=== PATIENT | male | born 1955 | race Hispanic/Latino ===

== ENCOUNTER 2018-05-03 14:45 | Inpatient (IN) | payer SELFPAY ==
[2018-05-03 17:25] LABS: Basophils # (Auto) 0.1 K/mm3 (0.0-0.1); Eosinophils # (Auto) 0.1 K/mm3 (0.0-0.4); Eosinophils % (Auto) 2.2 % (0.0-4.3); Hematocrit 40.2 % (35.5-45.6); Hemoglobin 13.4 gm/dl (11.8-15.2); Lymphocytes # (Auto) 1.4 K/mm3 (1.2-5.4); Lymphocytes % (Auto) 23.4 % (13.4-35.0); Mean Corpuscular HGB Conc 33 % (32-34); Mean Corpuscular Hemoglobin 31 pg (28-32); Mean Corpuscular Volume 92 fl (84-94); Monocytes # (Auto) 0.5 K/mm3 (0.0-0.8); Monocytes % (Auto) 7.8 % (0.0-7.3); Platelet Count 347 K/mm3 (140-440); Red Blood Count 4.35 M/mm3 (3.65-5.03); Red Cell Distribution Width 13.9 % (13.2-15.2)
[2018-05-03 17:28] LABS: Bilirubin,Urine NEG (Negative); Blood,Urine NEG (Negative); Color,Urine Yellow (Yellow); Mucus,Urine FEW /HPF; Protein,Urine <15 mg/dL mg/dL (Negative); RBC,Urine < 1.0 /HPF (0.0-6.0)
[2018-05-03 18:00] LABS: Calcium 9.7 mg/dL (8.4-10.2)
[2018-05-03] MEDS ORDERED: NACL 0.9% 1000 ML 1,000 ML IV ONE (20:49)
--- NOTE | 2018-05-03 20:53 | Emergency Department Report ---
HPI - General Chief Complaint: Hyperglycemia Time Seen by Provider: 05/03/18 20:39 - HPI HPI: 62-year-old male presents to the emergency department with complaint of a few days of dizziness. 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 He also says that he gets very fatigued easily with little exertion. He denies any headache, chest pain, shortness of breath, slurred speech, vision change, fever. He has a past medical history of hypertension and [id number] diabetes but has been noncompliant with medications for the past few years. The patient admits that he has not been conscientious about what he has been eating and has been having fruit juice and popsicles. He has had his blood sugar checked multiple times recently and often has been above 300. He went to an urgent care about one week ago and was started on metformin 1000 mg twice daily and lisinopril 20 mg daily. He does not have a primary care physician. He denies any tobacco or illicit drug use. No recent travel or sick contacts at home. ED Past Medical Hx - Past Medical History Previous Medical History?: Yes Hx Hypertension: Yes Hx Diabetes: Yes - Surgical History Past Surgical History?: No - Social History Smoking Status: Never Smoker Substance Use Type: None - Medications Home Medications: Home Medications Medication Instructions Recorded Confirmed Last Taken Type Lisinopril 20 mg PO DAILY 05/03/18 05/03/18 05/03/18 History metFORMIN [Glucophage] 500 mg PO BID 05/03/18 05/03/18 05/03/18 History ED Review of Systems ROS: Stated complaint: HIGH BLOOD SUGAR/DIZZINESS Other details as noted in HPI Comment: All other systems reviewed and negative Constitutional: other (fatigue). denies: chills, fever Eyes: denies: eye pain, eye discharge, vision change ENT: denies: ear pain, throat pain Respiratory: denies: cough, shortness of breath, wheezing Cardiovascular: denies: chest pain, palpitations Gastrointestinal: denies: abdominal pain, nausea, diarrhea Genitourinary: denies: urgency, dysuria Musculoskeletal: denies: back pain, joint swelling, arthralgia Skin: denies: rash, lesions Neurological: other (dizziness). denies: headache Physical Exam - Physical Exam Vital Signs: Vital Signs 05/03/18 15:01 Temperature 97.8 F Pulse Rate 82 Respiratory 16 Rate Blood Pressure 102/50 O2 Sat by Pulse 100 Oximetry Physical Exam: GENERAL: The patient is well-developed well-nourished. HENT: Normocephalic. Atraumatic. Patient has moist mucous membranes. EYES: Extraocular motions are intact. Pupils equal reactive to light bilaterally. There is some fatigable horizontal nystagmus. NECK: Supple. Trachea is midline. CHEST/LUNGS: Clear to auscultation. There is no respiratory distress noted. HEART/CARDIOVASCULAR: Regular. There is no tachycardia. There is no murmur. ABDOMEN: Abdomen is soft, nontender. Patient has normal bowel sounds. There is no abdominal distention. SKIN: Skin is warm and dry. NEURO: The patient is awake, alert, and oriented. The patient is cooperative. The patient has no focal neurologic deficits. The patient has normal speech. Cranial nerves II through XII grossly intact. No pronator drift. No dysmetria. MUSCULOSKELETAL: There is no tenderness or deformity. There is no limitation range of motion. There is no evidence of acute injury. ED Course Vital Signs 05/03/18 15:01 Temperature 97.8 F Pulse Rate 82 Respiratory 16 Rate Blood Pressure 102/50 O2 Sat by Pulse 100 Oximetry - Consultations Consultation #1: 05/04/18 03:49 I spoke with the woods rider geographic information scientist, Dr. Dumont, who recommends starting heparin on the patient and will see him as a consult in the morning. ED Medical Decision Making - Lab Data Result diagrams: 05/03/18 16:31 05/03/18 16:31 - EKG Data -: EKG Interpreted by Me EKG shows normal: sinus rhythm, axis, intervals, QRS complexes, ST-T waves Rate: normal - EKG Data When compared to previous EKG there are: previous EKG unavailable Interpretation: normal EKG - Radiology Data Radiology results: image reviewed interpreted by me: Chest x-ray does not show any acute process. There are no pleural effusions, obvious pneumonia and there is no pneumothorax. - Medical Decision Making Patient presents with complaints of some exertional fatigue, dizziness and lightheadedness. He also complains of some uncontrolled diabetes despite restarting on metformin about 1 week ago. He does have hyperglycemia but does not appear to be in diabetic ketoacidosis. EKG is normal without ST elevation WI, ischemia or dysrhythmia. However the patient's first troponin came back elevated and has continued to trend upwards thus far. Cardiology was contacted and the patient has been started on heparin drip. He will be admitted to the hospital for further evaluation and treatment and has been accepted for admission by the hospitalist, Dr. Bartholomew. - Differential Diagnosis WI, dysrhythmia, DKA, electrolyte abnormalities Critical Care Time: No Critical care attestation.: If time is entered above; I have spent that time in minutes in the direct care of this critically ill patient, excluding procedure time. ED Disposition Clinical Impression: NSTEMI (non-ST elevated myocardial infarction), Renal insufficiency, Dizziness Disposition: OP ADMIT IP TO THIS HOSP Is pt being admited?: Yes Condition: Fair Time of Disposition: 03:52
[2018-05-03] MEDS ORDERED: BABY ASPIRIN PO ONE (22:17)
[2018-05-03 22:23] LABS: Chol/HDL Ratio 6.37 %
[2018-05-03] MEDS ORDERED: HEPARIN 10,000 UNITS/10 ML IV ONE (22:24)
[2018-05-03] MEDS ORDERED: HEPARIN/ 0.45% NACL-25,000 UNIT/500 ML 25,000 UNIT/500 ML BAG IV SCH (23:00)
[2018-05-03 23:11] LABS: INR 1.01 (0.87-1.13)
--- NOTE | 2018-05-03 23:57 | History and Physical Report ---
History of Present Illness Date of examination: 05/03/18 History of present illness: 62-year-old male with a history of hypertension, diabetes stopped taking his medication of the last 2 years and restarted 1 week ago. He comes to the emergency room with complaints of chest pain that started 1 week ago. Pain was across his chest, bilateral shoulder and arms, neck and jaw which she described as a vice around these places, he states the pain was constant and became intermittent. He took some Tums for the patient with some relief. He denies shortness of breath, no nausea vomiting, diaphoresis or palpitation. Also complaining of generalized weakness Review of systems Constitutional: no weight loss, chills, fever Ears, eyes, nose, mouth and throat: no nasal congestion, no nasal discharge, no sinus pressure, no vision change, no red eye. Neck: No neck pain or rigidity. Cardiovascular: + chest pain, palpitations Respiratory: no cough, +shortness of breath Gastrointestinal: no abdominal pain hematochezia Genitourinary : no frequency , no hematuria Musculoskeletal: no joint swelling or muscle ache Integumentary: no rash, no pruritis Neurological: no parathesias, no numbness, no focal weakness Endocrine: no cold or heat intolerance, no polyuria or polydipsia Hematologic/Lymphatic: no easy bruising, no easy bleeding, no gland swelling Allergic/Immunologic: no urticaria, no angioedema. PAST MEDICAL HISTORY: Hypertension, diabetes PAST SURGICAL HISTORY: None SOCIAL HISTORY: No alcohol, no drugs, tobacco FAMILY HISTORY: Hypertension Medications and Allergies Allergies Allergy/AdvReac Type Severity Reaction Status Date / Time No Known Allergies Allergy Verified 05/03/18 22:37 Home Medications Medication Instructions Recorded Confirmed Last Taken Type Lisinopril 20 mg PO DAILY 05/03/18 05/03/18 05/03/18 History metFORMIN [Glucophage] 500 mg PO BID 05/03/18 05/03/18 05/03/18 History Active Meds: Active Medications Heparin Sodium/Sodium Chloride (Heparin/ 0.45% Nacl-25,000 Unit/500 Ml) 25,000 unit in 500 mls @ 20 mls/hr IV TITRATE RICARDO; Protocol Last Admin: 05/03/18 23:02 Dose: 1,360.75 units/hr, 27.215 mls/hr Exam - Physical Exam Narrative exam: Gen. appearance: Patient lying in bed, no apparent distress HEENT: Normocephalic, atraumatic, pupils equally round and reactive to light, extraocular movement intact, and no sclericterus,. No JVD or thyromegaly or nodule,neck supple, no carotid bruit ,mucous membranes moist, no exudate or erythema Heart: S1, S2, regular rate and rhythm Lungs: Clear bilaterally, breathing comfortable Abdomen: Positive bowel sounds, non-tender, nondistended, no organomegaly Extremity:no edema cyanosis, clubbing Skin: no rash, dry, warm Neuro: Oriented 3, cranial nerves II-12 intact, speech is fluent, motor and sensory intact - Constitutional Vitals: Temp Pulse Resp BP Pulse Ox 97.8 F 82 18 106/64 100 05/03/18 15:01 05/03/18 15:01 05/03/18 22:07 05/03/18 23:00 05/03/18 23:00 Results - Labs CBC & Chem 7: 05/03/18 16:31 05/03/18 16:31 Labs: Abnormal lab results 05/03/18 05/03/18 05/03/18 Range/Units 15:00 16:31 16:31 [place] % (Auto) 7.8 H (0.0-7.3) % VBG pH (7.320-7.420) Sodium 135 L (137-145) mmol/L Carbon Dioxide 21 L (22-30) mmol/L BUN 34 H (9-20) mg/dL Glucose 237 H (75-100) mg/dL POC Glucose 222 H (70-105) Troponin T (0.00-0.029) ng/mL Cholesterol (50-199) mg/dL LDL Cholesterol Direct (50-130) mg/dL 05/03/18 05/03/18 Range/Units 16:31 21:04 [place] % (Auto) (0.0-7.3) % VBG pH 7.261 L (7.320-7.420) Sodium (137-145) mmol/L Carbon Dioxide (22-30) mmol/L BUN (9-20) mg/dL Glucose (75-100) mg/dL POC Glucose (70-105) Troponin T 0.297 H* (0.00-0.029) ng/mL Cholesterol 274 H (50-199) mg/dL LDL Cholesterol Direct 212 H (50-130) mg/dL Assessment and Plan Assessment NSTMI Relative hypotension Diabetes type 2 Plan Admit to medicine Check cardiac enzymes, consult cardiology Continue heparin drip, start aspirin Club", JAZZY inhibitor, blood pressure will not tolerate continue appropriate outpatient medication, start DVT prophylaxis
[2018-05-04] MEDS ORDERED: PERCOCET 5/325 PO PRN (03:39)
[2018-05-04] MEDS ORDERED: ZOFRAN IV PRN (03:39)
[2018-05-04] MEDS ORDERED: SODIUM CHLORIDE FLUSH SYRINGE 10 ML IV PRN (03:39)
[2018-05-04] MEDS ORDERED: TYLENOL PO PRN (03:39)
--- NOTE | 2018-05-04 03:43 | XRay Report ---
FINAL REPORT PROCEDURE: XR CHEST 1V AP TECHNIQUE: Chest radiograph anteroposterior view. CPT 60826 HISTORY: NSTEMI COMPARISON: No prior studies are available for comparison. FINDINGS: Heart: Normal. Mediastinum/Vessels: Normal. Lungs/Pleural space: Normal. Bony thorax: No acute osseous abnormality. Life support devices: None. IMPRESSION: No acute cardiopulmonary abnormality.
[2018-05-04 05:58] LABS: Basophils # (Auto) 0.1 K/mm3 (0.0-0.1); Basophils % (Auto) 1.2 % (0.0-1.8); Eosinophils # (Auto) 0.2 K/mm3 (0.0-0.4); Eosinophils % (Auto) 2.6 % (0.0-4.3); Hematocrit 34.8 % (35.5-45.6); Hemoglobin 12.2 gm/dl (11.8-15.2); Lymphocytes # (Auto) 2.2 K/mm3 (1.2-5.4); Lymphocytes % (Auto) 31.9 % (13.4-35.0); Mean Corpuscular HGB Conc 35 % (32-34); Mean Corpuscular Hemoglobin 33 pg (28-32); Mean Corpuscular Volume 93 fl (84-94); Monocytes # (Auto) 0.5 K/mm3 (0.0-0.8); Monocytes % (Auto) 7.4 % (0.0-7.3); Platelet Count 286 K/mm3 (140-440); Red Blood Count 3.75 M/mm3 (3.65-5.03); Red Cell Distribution Width 14.2 % (13.2-15.2)
[2018-05-04 06:14] LABS: BUN/Creatinine Ratio 25; Blood Urea Nitrogen 25 mg/dL (9-20); Calcium 8.7 mg/dL (8.4-10.2); Hemolysis Index 9
[2018-05-04] MEDS ORDERED: PLAVIX PO ONE (09:31)
[2018-05-04] MEDS ORDERED: ASPIRIN PO SCH (10:00)
[2018-05-04] MEDS ORDERED: SODIUM CHLORIDE FLUSH SYRINGE 10 ML IV SCH (10:00)
[2018-05-04] MEDS ORDERED: ASPIRIN ONE (10:21)
[2018-05-04] MEDS ORDERED: ASPIRIN PO ONE (10:22)
[2018-05-04] MEDS ORDERED: HEPARIN/NS 5000 UNIT/500ML(CATH LAB) 1,000 ML IR ONE (10:34)
[2018-05-04] MEDS ORDERED: XYLOCAINE 2% INFILTRATI ONE (10:35)
[2018-05-04] MEDS ORDERED: CALAN ONE (10:35)
[2018-05-04] MEDS ORDERED: HEPARIN 10,000 UNITS/10 ML ONE (10:35)
[2018-05-04] MEDS ORDERED: VERSED ONE (10:35)
[2018-05-04] MEDS ORDERED: SUBLIMAZE ONE (10:35)
[2018-05-04] MEDS ORDERED: NITROGLYCERIN SYRINGE 3 ML ONE (10:35)
[2018-05-04] MEDS ORDERED: NACL 0.9% 500 ML 500 ML ONE (10:56)
[2018-05-04] MEDS ORDERED: PLAVIX ONE (11:13)
[2018-05-04] MEDS ORDERED: ALUM-MAG HYDROX-SIMETH 200-200-20MG/5ML ONE (11:16)
--- NOTE | 2018-05-04 11:30 | Event Note ---
Date: 05/04/18 lhc via right radial, lt main patent, lad mid 50%, diagonal 1 patent, lcx patent om1 small less than 2.0 mm mid 99% lesion, om2 small patent, rca patent and normal lv function, discuss with pt and family and medical management of nstemi, asa 81, plavix 75,statin, lopressor and imdur and dm control, possible discharge in am.
[2018-05-04] MEDS ORDERED: NACL 0.9% 1000 ML 1,000 ML IV SCH (12:00)
--- NOTE | 2018-05-04 12:22 | Consultation ---
History of Present Illness Consult date: 05/04/18 Requesting physician: TAMMIE SOLIS Consult reason: chest pain History of present illness: The patient claims that about 10 days ago, he ate some country ham prepared by his . Shortly thereafter, he developed bilateral upper extremity and substernal chest pain radiating to his jaw. He describes his chest pain as the sensation of someone sitting on his chest. He claims that he went to the fire department where he was noted to have elevated BP. He reports that they thought his symptoms were probably related to acid reflux and advised that he use antacids. Eventually, his symptoms resolved later that day. He did well until 5 days ago when he started noticing intermittent dizziness when he bends forward. Two days ago, due to significantly elevated blood glucose, he visited an urgent care center where he received metformin prescription. Due to persistence of dizziness, he decided to come to the emergency department this time. His troponin level is elevated consistent with acute non-ST segment elevation myocardial infarction. After informing the patient that he has to be hospitalized and undergo coronary angiography, he threatened to leave the hospital AMA and that he would not want to be admitted over the weekend. Later on, he changed his mind and was taken to the clinical laboratory science professor. Coronary angiography revealed a 50% mid LAD stenosis and 99% stenosis of a small, <2 mm OM1. RCA was patent. Past History Past Medical History: diabetes, hypertension, other (colitis) Past Surgical History: No surgical history Social history: , smoking Family history: denies: CAD Medications and Allergies Allergies Allergy/AdvReac Type Severity Reaction Status Date / Time No Known Allergies Allergy Verified 05/03/18 22:37 Home Medications Medication Instructions Recorded Confirmed Last Taken Type Lisinopril 20 mg PO DAILY 05/03/18 05/03/18 05/03/18 History metFORMIN [Glucophage] 500 mg PO BID 05/03/18 05/03/18 05/03/18 History Active Meds: Active Medications Acetaminophen (Tylenol) 650 mg PO Q4H PRN PRN Reason: Pain MILD(1-3)/Fever >100.5/CROCKETT Aspirin (Aspirin) 325 mg PO QDAY COUNTS INCLUDE 234 BEDS AT THE [facility] Last Admin: 05/04/18 10:25 Dose: 325 mg Aspirin (Baby Aspirin) 81 mg PO QDAY COUNTS INCLUDE 234 BEDS AT THE [facility] Clopidogrel Bisulfate (Plavix) 75 mg PO QDAY COUNTS INCLUDE 234 BEDS AT THE [facility] Heparin Sodium/Sodium Chloride (Heparin/ 0.45% Nacl-25,000 Unit/500 Ml) 25,000 unit in 500 mls @ 20 mls/hr IV TITRATE RICARDO; Protocol Last Titration: 05/04/18 06:48 Dose: 1,310.75 units/hr, 26.215 mls/hr Sodium Chloride (Nacl 0.9% 1000 Ml) 1,000 mls @ 75 mls/hr IV DIRECT RICARDO Stop: 05/04/18 21:59 Isosorbide Mononitrate (Imdur) 30 mg PO QDAY RICARDO Metoprolol Tartrate (Lopressor) 25 mg PO BID RICARDO Ondansetron HCl (Zofran) 4 mg IV Q8H PRN PRN Reason: Nausea And Vomiting Oxycodone/Acetaminophen (Percocet 5/325) 1 tab PO Q6H PRN PRN Reason: Pain, Moderate (4-6) Pravastatin Sodium (Pravachol) 40 mg PO QHS RICARDO Sodium Chloride (Sodium Chloride Flush Syringe 10 Ml) 10 ml IV BID RICARDO Sodium Chloride (Sodium Chloride Flush Syringe 10 Ml) 10 ml IV PRN PRN PRN Reason: LINE FLUSH Review of Systems Constitutional: no fever, no chills Ears, nose, mouth and throat: no ear pain, no ear discharge, no sore throat Cardiovascular: chest pain, lightheadedness, no orthopnea, no palpitations, no shortness of breath Respiratory: no cough, no hemoptysis, no shortness of breath Gastrointestinal: no abdominal pain, no nausea, no vomiting, no diarrhea, no constipation Genitourinary Male: no dysuria, no urinary frequency Rectal: no pain, no bleeding Musculoskeletal: no neck stiffness, no neck pain, no myalgias Integumentary: no rash, no pruritis Neurological: no weakness, no parathesias, no headaches Endocrine: no cold intolerance, no heat intolerance Hematologic/Lymphatic: no easy bruising, no easy bleeding Allergic/Immunologic: no urticaria, no wheezing Physical Examination Vital Signs Temp Pulse Resp BP Pulse Ox 97.8 F 82 16 102/50 100 05/03/18 15:01 05/03/18 15:01 05/03/18 15:01 05/03/18 15:01 05/03/18 15:01 General appearance: no acute distress HEENT: Positive: EOMI, Normocephaly, Mucus Membranes Moist Neck: Positive: neck supple, trachea midline Cardiac: Positive: Reg Rate and Rhythm, S1/S2 Lungs: Positive: clear to auscultation Neuro: Positive: Grossly Intact Abdomen: Positive: Soft, Active Bowel Sounds. Negative: Tender Skin: Positive: Clear. Negative: Rash Musculoskeletal: Normal Range of Motion Extremities: Present: normal. Absent: edema Results 05/04/18 05:41 05/04/18 05:41 Coagulation 05/03/18 Range/Units 22:41 PT 13.8 (12.2-14.9) Sec. INR 1.01 (0.87-1.13) APTT 26.0 (24.2-36.6) Sec. Lipids 05/03/18 Range/Units 21:04 Triglycerides 132 (2-149) mg/dL Cholesterol 274 H (50-199) mg/dL HDL Cholesterol 43 (40-59) mg/dL Cholesterol/HDL Ratio 6.37 % CBC 05/03/18 05/04/18 Range/Units 16:31 05:41 WBC 6.1 6.8 (4.5-11.0) K/mm3 RBC 4.35 3.75 (3.65-5.03) M/mm3 Hgb 13.4 12.2 (11.8-15.2) gm/dl Hct 40.2 34.8 L (35.5-45.6) % Plt Count 347 286 (140-440) K/mm3 Lymph # 1.4 2.2 (1.2-5.4) K/mm3 [place] # 0.5 0.5 (0.0-0.8) K/mm3 Eos # 0.1 0.2 (0.0-0.4) K/mm3 Baso # 0.1 0.1 (0.0-0.1) K/mm3 Comprehensive Metabolic Panel 05/03/18 05/04/18 Range/Units 16:31 05:41 Sodium 135 L 137 (137-145) mmol/L Potassium 4.8 4.2 (3.6-5.0) mmol/L Chloride 100.6 104.2 (98-107) mmol/L Carbon Dioxide 21 L 19 L (22-30) mmol/L BUN 34 H 25 H (9-20) mg/dL Creatinine 1.4 1.0 (0.8-1.5) mg/dL Glucose 237 H 266 H (75-100) mg/dL Calcium 9.7 8.7 (8.4-10.2) mg/dL - Imaging and Cardiology EKG: image reviewed EKG interpretations - Telemetry EKG Rhythm: Sinus Rhythm - EKG Sinus rhythms and dysrhythmias: sinus rhythm AV and intraventricular conduction: right bundle branch block Assessment and Plan Initiate anti-ischemic regimen including ASA, Plavix, Statin, Beta mindy and oral nitrates. Add ACEI if BP permits. Medical mgt of his CAD - vessel too small for stenting. - Patient Problems (1) NSTEMI (non-ST elevated myocardial infarction) Current Visit: Yes Status: Acute (2) CAD (coronary artery disease) Current Visit: Yes Status: Acute Qualifiers: Coronary Disease-Associated Artery/Lesion type: ute artery (3) Dizziness Current Visit: Yes Status: Acute (4) Hypertension Current Visit: Yes Status: Acute (5) Diabetes mellitus Current Visit: Yes Status: Chronic Qualifiers: Diabetes mellitus type: type 2
--- NOTE | 2018-05-04 12:27 | Progress Note ---
Assessment and Plan Assessment and plan: Patient is a 62-year-old man with a history of hypertension and type 2 DM who presented to the ED with malaise and dizziness. He mentioned that he experience chest pains about 1 week ago which resolved. Troponin was elevated and he was diagnosis with NSTEMI and scheduled for cardiac cath on Monday due to the long weekend. He refused to stay and was threatening to leave AMA; so the Product Safety Professional performed the Cardiac cath today which revealed a 50% mid LAD stenosis and 99% stenosis of a small, <2 mm OM1. RCA was patent. NSTEMI: treat medical, use Lovastatin 40mg at discharge for lower cost (d/w Dr. Velasco) Relative hypotension Diabetes type 2 Noncompliance: savings counselor on compliance Dizziness: treat with ivf Medical management and anticipate d/c tomorrow History Interval history: Patient was seen and examined. Follow-up on current diagnosis of dizziness. Overnight uneventful. Patient denies any chest pain, shortness breath, nausea/ vomiting or severe headaches. Imaging, nursing note, chart, labs and old chart reviewed. Discussed with patient. Hospitalist Physical - Physical exam Narrative exam: GEN: WDWN, NAD, Awake, Alert, Orientated x 3 HEENT: NCAT, EOMI, PERRL, OP Clear NECK: supple, no adenopathy, no thyromegaly, no JVD CVS/HEART: RRR, normal S1S2, pulses present bilaterally CHEST/LUNGS: CTA B, Symmetrical chest expansion, good air entry bilaterally GI/Abdomen: soft, NTND, good bowel sounds, no guarding or rebound /Bladder: no suprapubic tenderness, no CVA or paraspinal tenderness EXT/Skin: no c/c/e, no obvious rash MSK: FROM x 4 Neuro: CN 2-12 grossly intact, no new focal deficits Psych: calm but poor judgement in regards to his DM - Constitutional Vitals: Temp Pulse Resp BP Pulse Ox 97.4 F L 59 L 12 97/56 91 05/04/18 11:24 05/04/18 11:55 05/04/18 11:55 05/04/18 11:55 05/04/18 11:55 Results - Labs CBC & Chem 7: 05/04/18 05:41 05/04/18 05:41 Labs: Laboratory Last Values WBC 6.8 K/mm3 (4.5-11.0) 05/04/18 05:41 RBC 3.75 M/mm3 (3.65-5.03) 05/04/18 05:41 Hgb 12.2 gm/dl (11.8-15.2) 05/04/18 05:41 Hct 34.8 % (35.5-45.6) L 05/04/18 05:41 MCV 93 fl (84-94) 05/04/18 05:41 MCH 33 pg (28-32) H 05/04/18 05:41 MCHC 35 % (32-34) H 05/04/18 05:41 RDW 14.2 % (13.2-15.2) 05/04/18 05:41 Plt Count 286 K/mm3 (140-440) 05/04/18 05:41 Lymph % (Auto) 31.9 % (13.4-35.0) 05/04/18 05:41 [place] % (Auto) 7.4 % (0.0-7.3) H 05/04/18 05:41 Eos % (Auto) 2.6 % (0.0-4.3) 05/04/18 05:41 Baso % (Auto) 1.2 % (0.0-1.8) 05/04/18 05:41 Lymph # 2.2 K/mm3 (1.2-5.4) 05/04/18 05:41 [place] # 0.5 K/mm3 (0.0-0.8) 05/04/18 05:41 Eos # 0.2 K/mm3 (0.0-0.4) 05/04/18 05:41 Baso # 0.1 K/mm3 (0.0-0.1) 05/04/18 05:41 Seg Neutrophils % 56.9 % (40.0-70.0) 05/04/18 05:41 Seg Neutrophils # 3.9 K/mm3 (1.8-7.7) 05/04/18 05:41 PT 13.8 Sec. (12.2-14.9) 05/03/18 22:41 INR 1.01 (0.87-1.13) 05/03/18 22:41 APTT 26.0 Sec. (24.2-36.6) 05/03/18 22:41 Heparin Anti-Xa Level 0.76 U.I./ml (0.3-0.7) H 05/04/18 05:41 VBG pH 7.261 (7.320-7.420) L 05/03/18 16:31 Sodium 137 mmol/L (137-145) 05/04/18 05:41 Potassium 4.2 mmol/L (3.6-5.0) 05/04/18 05:41 Chloride 104.2 mmol/L (98-107) 05/04/18 05:41 Carbon Dioxide 19 mmol/L (22-30) L 05/04/18 05:41 Anion Gap 18 mmol/L 05/04/18 05:41 BUN 25 mg/dL (9-20) H 05/04/18 05:41 Creatinine 1.0 mg/dL (0.8-1.5) 05/04/18 05:41 Estimated GFR > 60 ml/min 05/04/18 05:41 BUN/Creatinine Ratio 25 % 05/04/18 05:41 Glucose 266 mg/dL (75-100) H 05/04/18 05:41 POC Glucose 222 (70-105) H 05/03/18 15:00 Lactic Acid 1.00 mmol/L (0.7-2.0) 05/03/18 21:04 Calcium 8.7 mg/dL (8.4-10.2) 05/04/18 05:41 Troponin T 0.358 ng/mL (0.00-0.029) H* D 05/04/18 00:02 Triglycerides 132 mg/dL (2-149) 05/03/18 21:04 Cholesterol 274 mg/dL (50-199) H 05/03/18 21:04 LDL Cholesterol Direct 212 mg/dL (50-130) H 05/03/18 21:04 HDL Cholesterol 43 mg/dL (40-59) 05/03/18 21:04 Cholesterol/HDL Ratio 6.37 % 05/03/18 21:04 TSH 3.450 mlU/mL (0.270-4.200) 05/03/18 21:04 Urine Color Yellow (Yellow) 05/03/18 16:08 Urine Turbidity Clear (Clear) 05/03/18 16:08 Urine pH 5.0 (5.0-7.0) 05/03/18 16:08 Ur Specific [place] 1.027 (1.003-1.030) 05/03/18 16:08 Urine Protein <15 mg/dl mg/dL (Negative) 05/03/18 16:08 Urine Glucose (UA) 50 mg/dL (Negative) 05/03/18 16:08 Urine Ketones Tr mg/dL (Negative) 05/03/18 16:08 Urine Blood Neg (Negative) 05/03/18 16:08 Urine Nitrite Neg (Negative) 05/03/18 16:08 Urine Bilirubin Neg (Negative) 05/03/18 16:08 Urine Urobilinogen 2.0 mg/dL (<2.0) 05/03/18 16:08 Ur Leukocyte Esterase Neg (Negative) 05/03/18 16:08 Urine WBC (Auto) 2.0 /HPF (0.0-6.0) 05/03/18 16:08 Urine RBC (Auto) < 1.0 /HPF (0.0-6.0) 05/03/18 16:08 Urine Mucus Few /HPF 05/03/18 16:08
--- NOTE | 2018-05-04 13:17 | Cardiac Catherization Report ---
LEFT HEART CATHETERIZATION CLINICAL INFORMATION: This is a 62-year-old gentleman, noncompliant with medication for diabetes, nonsmoker, presents with chest pain a few days ago with abnormal troponin suggestive of non-ST elevation VA. The patient was consented, explained the risk and benefits, brought to the landscaping and groundskeeping laborer. had breakfast, did not get sedation. The procedure was performed via the right radial artery, sterile technique, local anesthesia, 6-Afghan radial sheath. Left system engaged with 3.5 guiding catheter with a diagnostic catheter with the following findings: Left main is a medium caliber vessel, it is patent, bifurcates into [id number] caliber LAD, has a proximal mid after first diagonal, 50% lesion. Diagonal 1 is a [id number] caliber vessel that is patent and then circumflex and AV groove is a small caliber vessel that is patent, goes into a very small OM1 less than 2 mm, has a 99% NERISSA 2 flow in that vessel. The patient is currently chest pain free and OM2 is a small caliber vessel, 2.5 mm vessel that is patent. RCA is a large dominant vessel that is patent with mild irregularities, bifurcates a medium caliber PDA and PLV that are patent. LV gram done in GUYANESE and BUCKNER view shows normal LV function, LVEDP of 24 mmHg, LV is 112/24, aortic is 112/70. No gradient across the aortic valve on pullback. 5-Afghan catheters were taken over guidewire, 6-Afghan radial sheath was discontinued. Radial dressing applied. No hematoma, no bleeding. SUMMARY: The patient has small vessel disease. OM1 has 99% with NERISSA 3 flow. He is currently chest pain free. In view of the size of the vessel, we will treat medically. The patient had in view of small vessel less 2.0 mm will treat medically with aspirin, Plavix, statin and beta blockers and nitrates. The patient discussed about the nonobstructive disease in LAD, has aggressive statin medications, compliant with diabetes control and RCA patent, diagonal patent, left main patent, and circumflex and AV groove patent. Discussed in detail with the family. JOB# [id number] EVIN/MELANIE VICTORIA
[2018-05-04] MEDS: LOPRESSOR PO SCH (22:00)
[2018-05-04] MEDS ORDERED: PRAVACHOL PO SCH (22:00)
[2018-05-05 05:23] LABS: Hematocrit 35.4 % (35.5-45.6)
[2018-05-05 07:49] LABS: BUN/Creatinine Ratio 17; Blood Urea Nitrogen 15 mg/dL (9-20); Calcium 8.9 mg/dL (8.4-10.2); Hemolysis Index 14
[2018-05-05 08:27] VITALS: BP 105/63
[2018-05-05] MEDS ORDERED: BABY ASPIRIN PO SCH (10:00)
[2018-05-05] MEDS ORDERED: IMDUR PO SCH (10:00)
[2018-05-05] MEDS ORDERED: PLAVIX PO SCH (10:00)
--- NOTE | 2018-05-05 10:49 | Discharge Summary ---
Providers - Providers Date of Admission: 05/03/18 23:57 Date of discharge: 05/05/18 Attending physician: BENNETT ACEVEDO 05/03/18 23:21 Consult to Cardiology [CONS] Routine Consulting Provider: MEERA HOLDEN Reason For Exam: NSTEMI 05/04/18 03:39 Consult to Physician [CONS] Routine Comment: Consulting Provider: MEERA HOLDEN Physician Instructions: Reason For Exam: nstmi 05/04/18 11:25 Consult to Cardiac Rehabilitation [CONS] Routine Reason For Exam: Cardiac Rehab Evaluation 05/04/18 11:27 Consult to Case Management [CONS] Urgent Services Needed at Discharge: Other Notified:: n Additional Physician Instructions: self pay to help with medcaid application 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 He mentioned that he experience chest pains about 1 week ago which resolved. Troponin was elevated and he was diagnosis with NSTEMI and scheduled for cardiac cath on Monday due to the long weekend. He refused to stay and was threatening to leave AMA; so the Safety Consultant performed the Cardiac cath today which revealed a 50% mid LAD stenosis and 99% stenosis of a small, <2 mm OM1. RCA was patent. NSTEMI: treat medical, use Lovastatin 40mg at discharge for lower cost (d/w Dr. Velasco) Relative hypotension, continue metoprolol 25mg bid and imdur 30mg/d at same dose per Dr. 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 JANELL Huber at nursing station. Disposition: DC-01 TO HOME OR SELFCARE Time spent for discharge: 32 min Core Measure Documentation - Palliative Care Palliative Care/ Comfort Measures: Not Applicable - Core Measures Any of the following diagnoses?: acute ME - VTE Discharge Requirements Deep Vein Thrombosis/Pulmonary Embolism Present on Admission: No Has pt received <5 days of overlap therapy or INR<2.0: No Anticoagulant overlap therapy prescribed at discharge: No Contraindication No Overlap Therapy order at DC: Not Indicated - Acute ME Discharge Requirements Aspirin at discharge: Yes JAZZY/ARB for LVSD if EF <40%: No Reason for no JAZZY/ARB: Hypotension Beta mindy at discharge: Yes Statin for LDL = or >100 mg/dl on DC: Yes Exam - Physical Exam Narrative exam: GEN: WDWN, NAD, Awake, Alert, Orientated x 3 HEENT: NCAT, EOMI, PERRL, OP Clear NECK: supple, no adenopathy, no thyromegaly, no JVD CVS/HEART: RRR, normal S1S2, pulses present bilaterally CHEST/LUNGS: CTA B, Symmetrical chest expansion, good air entry bilaterally GI/Abdomen: soft, NTND, good bowel sounds, no guarding or rebound /Bladder: no suprapubic tenderness, no CVA or paraspinal tenderness EXT/Skin: no c/c/e, no obvious rash MSK: FROM x 4 Neuro: CN 2-12 grossly intact, no new focal deficits Psych: calm but poor judgement in regards to his DM - Constitutional Vitals: Temp Pulse Resp BP Pulse Ox 97.3 F L 58 L 18 105/63 95 05/05/18 07:53 05/05/18 07:53 05/05/18 07:53 05/05/18 07:53 05/05/18 07:53 Plan Activity: up only with assistance, other (no strenous activity including work until cleared by Safety Consultant) Diet: low salt, diabetic Special Instructions: record daily BP diary, record blood sugar diary Additional Instructions: call [facility] at [phone] for pcp Follow up with: MEERA HOLDEN MD [Staff Physician] - 7 Days [facility] [Provider Group] - 7 Days Prescriptions: Lovastatin [Altoprev] 40 mg PO QHS #30 tab Aspirin [Aspirin BABY CHEW TAB] 81 mg PO QDAY #30 tab Clopidogrel [Plavix] 75 mg PO QDAY #30 tablet Insulin Regular, Human [Novolin R] 1 dose SQ ACHS PRN #1 vial PRN Reason: Hyperglycemia ISOSORBIDE MONOnitrate [Imdur ER] 30 mg PO QDAY #30 tablet Metoprolol [Lopressor TAB] 25 mg PO BID #60 tablet
[2018-05-05] MEDS: LOPRESSOR PO SCH (10:58)
--- NOTE | 2018-05-05 11:57 | Progress Note ---
Assessment and Plan Patient is feeling well today. Discussed with Dr. Mulligan. Agree with discharge plans. Patient will be reassessed in the office as an outpatient. - Patient Problems (1) NSTEMI (non-ST elevated myocardial infarction) Status: Acute (2) Hypertension Status: Acute (3) Diabetes mellitus Status: Chronic Qualifiers: Diabetes mellitus type: type 2 (4) CAD (coronary artery disease) Status: Acute Qualifiers: Coronary Disease-Associated Artery/Lesion type: [place] artery Subjective Date of service: 05/05/18 Interval history: Patient is feeling better. Denies chest pain difficulty in breathing or palpitations. Anxious to go home today. Objective Vital Signs Temp Pulse Resp BP BP Pulse Ox 05/05/18 07:53 97.3 F L 58 L 18 105/63 95 05/05/18 04:00 97.9 F 61 18 94/56 95 05/04/18 23:53 98.4 F 60 18 93/56 96 05/04/18 19:51 98.1 F 68 18 95/56 94 05/04/18 18:11 97 05/04/18 18:00 67 05/04/18 16:00 64 16 87/46 95 05/04/18 15:00 93 H 12 95/55 94 05/04/18 14:30 57 L 12 95/56 94 05/04/18 14:00 58 L 12 95/56 95 05/04/18 13:45 58 L 11 L 98/52 94 05/04/18 13:30 60 12 98/56 95 05/04/18 13:00 64 14 97/58 95 05/04/18 12:30 61 14 100/29 94 05/04/18 12:15 69 17 106/64 94 - Physical Examination General: Appears Well HEENT: Positive: EOMI, Normocephaly, Mucus Membranes Moist Neck: Positive: neck supple, trachea midline Cardiac: Positive: Regular Rate Lungs: Positive: clear to auscultation Neuro: Positive: Grossly Intact Abdomen: Positive: Soft, Active Bowel Sounds. Negative: Tender Skin: Positive: Clear. Negative: Rash Musculoskeletal: Normal Range of Motion Extremities: Present: normal. Absent: edema - Labs and Meds CBC 05/05/18 Range/Units 03:26 Hgb 12.0 (11.8-15.2) gm/dl Hct 35.4 L (35.5-45.6) % Plt Count 288 (140-440) K/mm3 Comprehensive Metabolic Panel 05/05/18 Range/Units 03:26 Sodium 137 (137-145) mmol/L Potassium 4.3 (3.6-5.0) mmol/L Chloride 105.2 (98-107) mmol/L Carbon Dioxide 20 L (22-30) mmol/L BUN 15 (9-20) mg/dL Creatinine 0.9 (0.8-1.5) mg/dL Glucose 257 H (75-100) mg/dL Calcium 8.9 (8.4-10.2) mg/dL - Imaging and Cardiology EKG: image reviewed - EKG Sinus rhythms and dysrhythmias: sinus rhythm AV and intraventricular conduction: right bundle branch block
== END 2018-05-05 14:58 | disposition home or self-care (01) | DRG 282 ==
LOC: ED 14:45 → IMCU 23:57 → 4A 05-04 14:10
PROVIDERS: ADMIT Internal Medicine; ATTEND Internal Medicine
PROC: 4A023N7 Measurement of Cardiac Sampling and Pressure, Left Heart, Percutaneous Approach (ICD-10-PCS; principal; 2018-05-04)
PROC: B2111ZZ Fluoroscopy of Multiple Coronary Arteries using Low Osmolar Contrast (ICD-10-PCS; 2018-05-04)
PROC: B2150ZZ Fluoroscopy of Left Heart using High Osmolar Contrast (ICD-10-PCS; 2018-05-04)
DX: I21.4 Non-ST elevation (NSTEMI) myocardial infarction (principal); I10 Essential (primary) hypertension; E11.9 Type 2 diabetes mellitus without complications; I25.10 Atherosclerotic heart disease of native coronary artery without angina pectoris; R42 Dizziness and giddiness; N28.9 Disorder of kidney and ureter, unspecified; Z91.19 Patient's noncompliance with other medical treatment and regimen; Z71.89 Other specified counseling; Z79.899 Other long term (current) drug therapy; Z82.49 Family history of ischemic heart disease and other diseases of the circulatory system
CPT/HCPCS: 36415; 71045; 80048; 80061; 81001; 82140; 82805; 82962; 84443; 84484; 85014; 85018; 85025; 85049; 85520; 85610; 85730; 93005; 93010; 93458; A9270-GY; C1894; J1644; J2250; J3010; J7040; Q9967